=== PATIENT | female | born 1940 | race Caucasian/White ===

== ENCOUNTER 2017-07-29 11:44 | Emergency (ER) | payer OTHER ==
[~2017-07-29] VITALS: Ht 157.5 cm; Wt 93.9 kg
[~2017-07-29 11:44] MED LIST: ASPIRIN325 PO; ASPIRIN81 M2; AUGMENTIN 875875 MG PO; AVAPRO PO; AVAPRO300 MG PO; AZITHROMYCIN 2250 MG PO; CALCIUM 500 +1 EAC5; CALCIUM 600 +1 EAC1 PO; CARVEDILOL3.125 MG PO; CYMBALTA30 MG PO; DULERA 100 MCG/13 GM INH; DULERA 200 MCG/13 GM; EYE GTTS; FISH OIL 1,2001 EAC3 PO; LATANOPROST2.5 ML OPHTHALMIC; LEVAQUIN 500 M500 M2; LEVOTHROID; LEVOTHROID112 MCG; LIPITOR PO; LIPITOR40 MG PO; MULTIVITAMINS PO; PREDNISONE 10 M10 MG; PROAIR HFA8.5 GM; SINGULAIR 10 MG10 M1 PO; SINGULAIR PO; SYNTHROID150 MCG PO; TRAMADOL 50 MG50 MG PO; VITAMINC500 PO; ZOFRAN 4 MG ORAL4 MG PO
[2017-07-29] MEDS ORDERED: LATANOPROST 0.2.5 ML OPHTHALMIC (11:56)
[2017-07-29 12:07] LABS: HEMATOCRIT 36.7 % (37.0-47.0); HEMOGLOBIN 12.2 gm/dL (12.0-15.0); MCH 29.8 pg (26.0-34.0); MCHC 33.3 g/dL (28.0-37.0); MCV 89.4 fL (80.0-100.0); MPV 7.8 fl. (7.2-11.1); NUCLEATED RBCS 0 /100WBC; PLATELET COUNT* 251 thou/uL (150-400); RBC 4.11 mil/uL (4.20-5.00); RDW-CV 13.7 % (10.5-14.5); WBC 6.8 thou/uL (4.0-11.0)
[2017-07-29 12:19] LABS: APTT 22.7 Seconds (25.0-31.3); PROTIME 9.8 Seconds (9.20-11.50)
[2017-07-29 12:30] LABS: ANION GAP 8 mmol/L (7-16); BUN 15 mg/dL (7-18); CHLORIDE 105 mmol/L (98-107); CO2 27 mmol/L (21-32); CREATININE 0.9 mg/dL (0.6-1.3); GLUCOSE 133 mg/dL (70-99); POTASSIUM 3.8 mmol/L (3.5-5.1); SODIUM 140 mmol/L (136-145)
[2017-07-29 12:50] LABS: ABSOLUTE EOSINOPHILS 0.6 thou/uL (0.0-0.7); ABSOLUTE LYMPHOCYTES 1.2 thou/uL (0.8-5.3); ABSOLUTE NEUTROPHILS 3.9 thou/uL (1.6-8.1); ATYPICAL LYMPHS 5 %; PLATELET ESTIMATE ADEQUATE
[2017-07-29 12:52] LABS: ALKALINE PHOSPHATASE 90 U/L (46-116); CK-MB MASS < 0.5 ng/mL (<0.5-3.6); LIPASE 271 U/L (73-393); MAGNESIUM 1.8 mg/dL (1.8-2.4); NT-PRO BRAIN NAT PEPTIDE 97 pg/mL (<300); SGOT 85 U/L (15-37); SGPT 145 U/L (30-65); TOTAL BILIRUBIN 0.5 mg/dL (<0.1-1.0); TOTAL PROTEIN 6.4 g/dL (6.4-8.2); TROPONIN-I LEVEL <0.06 ng/mL (<0.06)
[2017-07-29 14:16] LABS: URINE BILIRUBIN NEGATIVE (Negative); URINE BLOOD 3+ (Negative); URINE CLARITY CLEAR; URINE COLOR YELLOW; URINE GLUCOSE-RANDOM NEGATIVE (Negative); URINE KETONES NEGATIVE (Negative); URINE NITRITE-REFLEX NEGATIVE (Negative); URINE PROTEIN TRACE (Negative); URINE SPECIFIC GRAVITY 1.015 (1.005-1.030); URINE UROBILINOGEN 0.2 E.U./dl (0.2-1.0)
[2017-07-29 14:18] LABS: URINE LEUKOCYTES-REFLEX 2+ (Negative)
[2017-07-29 14:29] LABS: BACTERIA-REFLEX >30 Many /HPF (None Seen); CASTS None Seen /LPF (None Seen); SQUAMOUS 0-3 Few /LPF (0-3); URINE WBC-REFLEX >25 Many /HPF (0-5)
[2017-07-29 14:30] LABS: CRYSTALS None Seen /LPF (None Seen)
[2017-07-29] MEDS ORDERED: CIPROFLOXACIN500 M1 PO (14:34)
[2017-07-29 14:40] VITALS: BP 131/65
--- NOTE | 2017-07-30 11:48 | EKG ---
[place] [address] ELECTROCARDIOGRAM REPORT Name: PATRICIA KAUFMAN Room: [facility]#: [id number] Admission: 07/29/17 Attend Phys: Discharge: 07/29/17 Date of : 38 Report #: [id number] THIS REPORT FOR: //name// [facility] ED Test Date: 2017-07-29 Test Time: 11:51:41 Pat Name: PATRICIA KAUFMAN Department: Room: Gender: F Wildlife Refuge Specialist: Karissa ALMAZAN : 1940 Requested By: Gabriel Flores Order Number: [id number] MD: Chilo Wyman Measurements Intervals [place] Rate: 69 P: 59 [place]: 185 QRS: -30 QRSD: 103 T: 85 QT: 393 QTc: 421 Interpretive Statements Sinus rhythm Abnormal R-wave progression, late transition LVH with secondary repolarization abnormality Compared to ECG 03/13/2012 08:37:12 Early repolarization now present Sinus bradycardia no longer present Electronically Signed On 07-30-2017 11:48:20 PARKING MANAGER by Chilo Wyman [email or web address] <ELECTRONICALLY SIGNED> By: Chilo Wyman MD, [facility] 07/30/17 1148 1151 1151 Chilo Wyman MD, [facility] /EPI
== END 2017-07-29 14:41 | disposition home or self-care (01) ==
LOC: M.ERS 11:44
PROVIDERS: Family Medicine
DX: R07.89 Other chest pain (principal); N39.0 Urinary tract infection, site not specified; R31.9 Hematuria, unspecified; J45.909 Unspecified asthma, uncomplicated; I10 Essential (primary) hypertension; E78.00 Pure hypercholesterolemia, unspecified

== ENCOUNTER 2017-08-22 02:07 | Emergency (ER) | payer OTHER ==
[~2017-08-22] VITALS: Ht 157.5 cm; Wt 93.9 kg
[~2017-08-22 02:07] MED LIST changes: +CIPROFLOXACIN500 M1 PO; +LATANOPROST 0.2.5 ML OPHTHALMIC
[2017-08-22] MEDS ORDERED: PREDNISONE 10 M10 MG (02:16)
[2017-08-22 02:30] LABS: ABSOLUTE BASOPHILS 0.1 thou/uL (0.0-0.2); ABSOLUTE LYMPHOCYTES 1.2 thou/uL (0.8-5.3); ABSOLUTE MONOCYTES 0.5 thou/uL (0.0-1.2); ABSOLUTE NEUTROPHILS 7.8 thou/uL (1.6-8.1); BASOPHILS 0.7 %; EOSINOPHILS 0.5 %; HEMATOCRIT 34.8 % (37.0-47.0); HEMOGLOBIN 11.5 gm/dL (12.0-15.0); LYMPHOCYTES 12.9 %; MCH 29.8 pg (26.0-34.0); MCV 90.3 fL (80.0-100.0); MONOCYTES 4.8 %; MPV 7.8 fl. (7.2-11.1); NUCLEATED RBCS 0 /100WBC; PLATELET COUNT* 279 thou/uL (150-400); POLYS 81.1 %; RBC 3.86 mil/uL (4.20-5.00); WBC 9.6 thou/uL (4.0-11.0)
[2017-08-22 02:45] LABS: APTT 22.9 Seconds (25.0-31.3); PROTIME 10.2 Seconds (9.20-11.50)
[2017-08-22 02:48] LABS: ANION GAP 9 mmol/L (7-16); BUN 21 mg/dL (7-18); CALCIUM 9.1 mg/dL (8.5-10.1); CHLORIDE 106 mmol/L (98-107); CO2 26 mmol/L (21-32); CREATININE 0.9 mg/dL (0.6-1.3); GLUCOSE 149 mg/dL (70-99); POTASSIUM 3.8 mmol/L (3.5-5.1); SODIUM 141 mmol/L (136-145)
[2017-08-22 03:06] LABS: ALBUMIN 3.2 g/dL (3.4-5.0); ALKALINE PHOSPHATASE 109 U/L (46-116); CK-MB MASS 0.7 ng/mL (<0.5-3.6); LIPASE 184 U/L (73-393); MAGNESIUM 1.9 mg/dL (1.8-2.4); NT-PRO BRAIN NAT PEPTIDE 645 pg/mL (<300); SGOT 27 U/L (15-37); SGPT 38 U/L (30-65); TOTAL BILIRUBIN 0.3 mg/dL (<0.1-1.0); TOTAL PROTEIN 6.7 g/dL (6.4-8.2); TROPONIN-I LEVEL <0.06 ng/mL (<0.06)
[2017-08-22 03:24] VITALS: BP 156/51
--- NOTE | 2017-08-22 15:21 | EKG ---
[place] [address] ELECTROCARDIOGRAM REPORT Name: PATRICIA KAUFMAN Room: [facility]#: [id number] Admission: 08/22/17 Attend Phys: Discharge: 08/22/17 Date of : 38 Report #: [id number] THIS REPORT FOR: //name// [facility] ED Test Date: 2017-08-22 Test Time: 02:13:55 Pat Name: PATRICIA KAUFMAN Department: Room: Gender: F Rf Test Technician: KULDEEP : 1940 Requested By: Gabriel Flores Order Number: [id number] MD: Chilo Wyman Measurements Intervals [place] Rate: 72 P: 69 VA: 196 QRS: -20 QRSD: 102 T: 15 QT: 408 QTc: 447 Interpretive Statements Sinus rhythm Borderline left axis deviation Minimal ST depression, anterolateral leads Compared to ECG 07/29/2017 11:51:41 ST (T wave) deviation now present Left ventricular hypertrophy no longer present Early repolarization no longer present Electronically Signed On 08-22-2017 15:21:11 ORACLE APPLICATIONS ANALYST by Chilo Wyman [email or web address] <ELECTRONICALLY SIGNED> By: Chilo Wyman MD, [facility] 08/22/17 1521 Chilo Wyman MD, [facility] /EPI
== END 2017-08-22 03:24 | disposition home or self-care (01) ==
LOC: M.ERS 02:07
PROVIDERS: Family Medicine
DX: R07.89 Other chest pain (principal)

== ENCOUNTER → 2017-09-27 | Outpatient (CLI) | payer OTHER ==
--- NOTE | 2017-09-27 16:17 | 2DMMODE ---
[place] [address] 2 D/M-MODE ECHOCARDIOGRAM Name: SHAEPATRICIA Bridgette Room: [facility]#: [id number] Admission: 09/27/17 Attend Phys: Atilio De León, Discharge: Date of : 38 Date of Service: 09/27/17 1616 Report #: [id number] THIS REPORT FOR: //name// APPROVED REPORT Study performed: 09/27/2017 10:20:54 EXAM: Comprehensive 2D, Doppler, and color-flow Echocardiogram Patient Location: Out-Patient Status: routine BSA: 2.01 HR: 68 bpm BP: 152/78 mmHg Other Information Study Quality: Good Indications Aortic Valve Disease 2D Dimensions LVEF(%): 75.37 (>50%) IVSd: 12.85 (7-11mm) LVOT Diam: 20.14 (18-24mm) LVDd: 42.67 mm PWd: 9.97 (7-11mm) Ascending Ao: 32.08 (22-36mm) LVDs: 23.97 (25-40mm) Aortic Root: 28.26 mm Johansen's LVEF: 75.37 % Volumes Left Atrial Volume (Systole) LA ESV Index: 18.00 mL/m2 Aortic Valve AoV Peak Daniel.: 2.21 m/s AO Peak Gr.: 19.58 mmHg LVOT Max P.36 mmHg AO Mean Gr.: 12.09 mmHg LVOT Mean P.01 mmHg LVOT Max V: 1.04 m/s AO V2 VTI: 59.80 cm LVOT Mean V: 0.65 m/s BRANDON (VTI): 1.38 cm2 LVOT V1 VTI: 25.98 cm AI [place]: 2.34 m/s2 AI PHT: 399.80 [place] [address] 2 D/M-MODE ECHOCARDIOGRAM Name: PATRICIA KAUFMAN Room: [facility]#: [id number] Admission: 09/27/17 Attend Phys: Atilio De León, Discharge: Date of : 38 Date of Service: 09/27/17 1616 Report #: [id number] E/A Ratio: 0.83 MV Decel. Time: 227.91 ms MV E Max Daniel.: 1.04 m/s MV PHT: 66.09 ms MVA (PHT): 3.33 cm2 TDI E/Lateral E': 13.00 E/Medial E': 11.56 Medial E' Daniel.: 0.09 m/s Lateral E' Daniel.: 0.08 m/s Pulmonary Valve PV Peak Daniel.: 0.97 m/s PV Peak Gr.: 3.73 mmHg Tricuspid Valve TR Peak Gr.: 18.23 mmHg RVSP: 23.23 mmHg Left Ventricle The left ventricle is normal size. There is normal LV segmental wall motion. There is normal left ventricular wall thickness. Left ventricular systolic function is normal. The left ventricular ejection fraction is within the normal range. LVEF is 55-60%. Grade I - abnormal relaxation pattern. Right Ventricle The right ventricle is normal size. The right ventricular systolic function is normal. Atria The left atrium size is normal. The right atrium size is normal. Aortic Valve Aortic valve is calcified. Mild aortic regurgitation. Mild aortic stenosis. Mitral Valve There is mild mitral annular calcification. Mild mitral regurgitation. No evidence of mitral valve stenosis. Tricuspid Valve The tricuspid valve is normal in structure. Mild tricuspid regurgitation. The RVSP is _23 mmHg. Pulmonic Valve The pulmonary valve is normal in structure. [place] [address] 2 D/M-MODE ECHOCARDIOGRAM Name: PATRICIA KAUFMAN Room: [facility]#: [id number] Admission: 09/27/17 Attend Phys: Atilio De León, Discharge: Date of : 38 Date of Service: 09/27/17 1616 Report #: [id number] valvular regurgitation. Great Vessels The aortic root is normal in size. IVC is normal in size and collapses with >50% inspiration Pericardium There is no pericardial effusion. <Conclusion> LVEF is 55-60%. Mild aortic stenosis. Mild aortic regurgitation. Mild mitral regurgitation. <ELECTRONICALLY SIGNED> By: Velasquez Graves MD, FACC 09/27/17 [phone] Velasquez Graves MD, FACC /INF
== END ==
LOC: M.CRD 10:00
DX: I08.3 Combined rheumatic disorders of mitral, aortic and tricuspid valves (principal)

== ENCOUNTER → 2018-10-02 | Outpatient (CLI) | payer OTHER ==
--- NOTE | 2018-10-02 10:57 | 2DMMODE ---
[place] [address] 2 D/M-MODE ECHOCARDIOGRAM Name: PATRICIA KAUFMAN Room: [facility]#: [id number] Admission: 10/02/18 Attend Phys: Atilio De León, Discharge: Date of : 38 Date of Service: 10/02/18 1057 Report #: [id number] THIS REPORT FOR: //name// APPROVED REPORT Study performed: 10/02/2018 09:55:44 EXAM: Comprehensive 2D, Doppler, and color-flow Echocardiogram Patient Location: Out-Patient BSA: 1.99 HR: 55 bpm BP: 152/78 mmHg Other Information Study Quality: Good Indications Aortic Valve Disease 2D Dimensions IVSd: 10.59 (7-11mm) LVOT Diam: 20.32 (18-24mm) LVDd: 49.04 mm PWd: 10.94 (7-11mm) Ascending Ao: 33.16 (22-36mm) LVDs: 23.13 (25-40mm) Aortic Root: 27.83 mm Volumes Left Atrial Volume (Systole) LA ESV Index: 14.80 mL/m2 Aortic Valve AoV Peak Daniel.: 2.12 m/s AO Peak Gr.: 17.99 mmHg LVOT Max P.06 mmHg AO Mean Gr.: 10.90 mmHg LVOT Mean P.15 mmHg LVOT Max V: 1.12 m/s AO V2 VTI: 58.35 cm LVOT Mean V: 0.66 m/s BRANDON (VTI): 1.66 cm2 LVOT V1 VTI: 29.90 cm AI Iron: 2.30 m/s2 AI PHT: 404.37 ms Mitral Valve MV Peak Gr.: 6.71 mmHg MV Mean Gr.: 2.37 mmHg E/A Ratio: 0.90 MV Decel. Time: 213.41 [place] [address] 2 D/M-MODE ECHOCARDIOGRAM Name: PATRICIA KAUFMAN Room: [facility]#: [id number] Admission: 10/02/18 Attend Phys: Atilio De León, Discharge: Date of : 38 Date of Service: 10/02/18 1057 Report #: [id number] MV E Max Daniel.: 0.95 m/s MV PHT: 61.89 ms MVA (PHT): 3.55 cm2 TDI E/Lateral E': 10.56 E/Medial E': 13.57 Medial E' Daniel.: 0.07 m/s Lateral E' Daniel.: 0.09 m/s Pulmonary Valve PV Peak Daniel.: 0.92 m/s PV Peak Gr.: 3.41 mmHg Tricuspid Valve RAP Estimate: 5.00 mmHg TR Peak Gr.: 18.91 mmHg RVSP: 23.91 mmHg TV Vmax: 23.91 m/s PA Pressure: 23.91 mmHg Left Ventricle The left ventricle is normal size. There is normal LV segmental wall motion. There is normal left ventricular wall thickness. Left ventricular systolic function is normal. LVEF is 55-60%. Grade I - abnormal relaxation pattern. Right Ventricle The right ventricle is normal size. The right ventricular systolic function is normal. Atria The left atrium size is normal. The right atrium size is normal. Aortic Valve Aortic valve is mildly calcified. Mild aortic regurgitation. Mild aortic stenosis. Mitral Valve Mild mitral annular calcification. Mild mitral regurgitation. No evidence of mitral valve stenosis. Tricuspid Valve The tricuspid valve is normal in structure. Mild tricuspid regurgitation. The RVSP is 30-35 mmHg. Pulmonic Valve The pulmonary valve is normal in structure. There is no pulmonic [place] [address] 2 D/M-MODE ECHOCARDIOGRAM Name: PATRICIA KAUFMAN Room: [facility]#: [id number] Admission: 10/02/18 Attend Phys: Atilio De León, Discharge: Date of : 38 Date of Service: 10/02/18 1057 Report #: [id number] Great Vessels The aortic root is normal in size. IVC is normal in size and collapses >50% with inspiration. Pericardium There is no pericardial effusion. <Conclusion> The left ventricle is normal size. There is normal left ventricular wall thickness. Left ventricular systolic function is normal. LVEF is 55-60%. Grade I - abnormal relaxation pattern. Aortic valve is mildly calcified. Mild aortic regurgitation. Mild aortic stenosis. Mild mitral annular calcification. Mild mitral regurgitation. Mild tricuspid regurgitation. The RVSP is 30-35 mmHg. IVC is normal in size and collapses >50% with inspiration. <ELECTRONICALLY SIGNED> By: Atilio De León MD, FACC 10/02/18 1057 1057 1057 Atilio De León MD, FACC /INF
== END ==
LOC: M.CRD 09:51
DX: I08.3 Combined rheumatic disorders of mitral, aortic and tricuspid valves (principal); Z88.5 Allergy status to narcotic agent; Z88.8 Allergy status to other drugs, medicaments and biological substances

== ENCOUNTER → 2018-11-12 | Outpatient (CLI) | payer OTHER | LOC: M.RAD 14:36 | DX: M47.812 Spondylosis without myelopathy or radiculopathy, cervical region (principal); M47.813 Spondylosis without myelopathy or radiculopathy, cervicothoracic region; R68.84 Jaw pain; G89.29 Other chronic pain; Z88.5 Allergy status to narcotic agent; Z88.8 Allergy status to other drugs, medicaments and biological substances ==

== ENCOUNTER → 2019-11-04 | Outpatient (CLI) | payer OTHER ==
--- NOTE | 2019-11-04 09:47 | 2DMMODE ---
[place] [address] 2 D/M-MODE ECHOCARDIOGRAM Name: PATRICIA KAUFMAN Room: [facility]#: [id number] Admission: 11/04/19 Attend Phys: Atilio De León, Discharge: Date of : 38 Date of Service: 11/04/19 0945 Report #: [id number] THIS REPORT FOR: cc: Ryley Wilcox MD, Dean L. MD Holkins,Tay Harper MD [facility] ~ APPROVED REPORT Study performed: 11/04/2019 07:51:11 EXAM: Comprehensive 2D, Doppler, and color-flow Echocardiogram Patient Location: Out-Patient BSA: 2.02 HR: 64 bpm BP: 152/78 mmHg Other Information Study Quality: Good Indications Aortic Valve Disease 2D Dimensions IVSd: 11.01 (7-11mm) LVOT Diam: 20.80 (18-24mm) LVDd: 46.98 mm PWd: 11.21 (7-11mm) Ascending Ao: 33.14 (22-36mm) LVDs: 25.63 (25-40mm) Aortic Root: 24.79 mm Volumes Left Atrial Volume (Systole) LA ESV Index: 14.10 mL/m2 Aortic Valve AoV Peak Daniel.: 2.51 m/s AO Peak Gr.: 25.23 mmHg LVOT Max P.25 mmHg AO Mean Gr.: 14.93 mmHg LVOT Mean P.16 mmHg LVOT Max V: 1.15 m/s AO V2 VTI: 70.29 cm LVOT Mean V: 0.66 m/s BRANDON (VTI): 1.46 cm2 LVOT V1 VTI: 30.15 cm AI [place]: 1.90 m/s2 AI PHT: 527.22 [place] [address] 2 D/M-MODE ECHOCARDIOGRAM Name: SHAEPATRICIARADHIKA STONE Room: [facility]#: [id number] Admission: 11/04/19 Attend Phys: Atilio De León, Discharge: Date of : 38 Date of Service: 11/04/19 0945 Report #: [id number] Mitral Valve MV Peak Gr.: 8.04 mmHg MV Mean Gr.: 3.69 mmHg E/A Ratio: 0.75 MV Decel. Time: 352.23 ms MV E Max Daniel.: 0.87 m/s MV PHT: 102.15 ms MVA (PHT): 2.15 cm2 TDI E/Lateral E': 8.70 E/Medial E': 12.43 Medial E' Daniel.: 0.07 m/s Lateral E' Daniel.: 0.10 m/s Pulmonary Valve PV Peak Daniel.: 0.90 m/s PV Peak Gr.: 3.21 mmHg Tricuspid Valve RAP Estimate: 5.00 mmHg TR Peak Gr.: 25.36 mmHg RVSP: 30.36 mmHg PA Pressure: 30.36 mmHg Left Ventricle The left ventricle is normal size. There is normal LV segmental wall motion. There is normal left ventricular wall thickness. Left ventricular systolic function is normal. The left ventricular ejection fraction is within the normal range. LVEF is 55-60%. Grade I - abnormal relaxation pattern. Right Ventricle The right ventricle is normal size. The right ventricular systolic function is normal. Atria The left atrium size is normal. The right atrium size is normal. Aortic Valve Aortic valve is mildly calcified. Mild aortic regurgitation. Mild aortic stenosis. Mitral Valve Moderate mitral annular calcification. Mild mitral regurgitation. No evidence of mitral valve stenosis. Tricuspid Valve The tricuspid valve is normal in structure. [place] [address] 2 D/M-MODE ECHOCARDIOGRAM Name: PATRICIA KAUFMAN Room: [facility]#: [id number] Admission: 11/04/19 Attend Phys: Atilio De León, Discharge: Date of : 38 Date of Service: 11/04/19 0945 Report #: [id number] regurgitation. Pulmonic Valve The pulmonary valve is normal in structure. There is no pulmonic valvular regurgitation. Great Vessels The aortic root is normal in size. IVC is normal in size and collapses >50% with inspiration. Pericardium There is no pericardial effusion. <Conclusion> The left ventricle is normal size. There is normal left ventricular wall thickness. Left ventricular systolic function is normal. The left ventricular ejection fraction is within the normal range. LVEF is 55-60%. Grade I - abnormal relaxation pattern. The right ventricle is normal size. The left atrium size is normal. Aortic valve is mildly calcified. Mild aortic regurgitation. Mild aortic stenosis. Moderate mitral annular calcification. Mild mitral regurgitation. No evidence of mitral valve stenosis. The tricuspid valve is normal in structure. Mild tricuspid regurgitation. IVC is normal in size and collapses >50% with inspiration. There is no pericardial effusion. There is normal LV segmental wall motion. <ELECTRONICALLY SIGNED> By: Tay Wise MD, FACC 11/04/19 0945 0945 Tay Wise MD, FACC /INF
== END ==
LOC: M.CRD 07:50
DX: I08.3 Combined rheumatic disorders of mitral, aortic and tricuspid valves (principal)

== ENCOUNTER → 2020-09-28 | Outpatient (CLI) | payer OTHER | LOC: M.RAD 14:04 | PROVIDERS: ATTEND Internal Medicine | DX: M19.011 Primary osteoarthritis, right shoulder (principal); G89.29 Other chronic pain; M50.10 Cervical disc disorder with radiculopathy, unspecified cervical region; M48.02 Spinal stenosis, cervical region; M25.78 Osteophyte, vertebrae; R07.9 Chest pain, unspecified ==

== ENCOUNTER → 2020-11-09 | Outpatient (CLI) | payer OTHER ==
--- NOTE | 2020-11-09 14:35 | 2DMMODE ---
[place] [address] 2 D/M-MODE ECHOCARDIOGRAM Name: PATRICIA KAUFMNA Room: [facility]#: [id number] Admission: 11/09/20 Attend Phys: Atilio De León, Discharge: Date of : 38 Date of Service: 11/09/20 1435 Report #: [id number] THIS REPORT FOR: cc: Ryley Wilcox MD, Dean L. MD Blick, David R. MD [facility] ~ APPROVED REPORT Study performed: 11/09/2020 10:30:20 EXAM: Comprehensive 2D, Doppler, and color-flow Echocardiogram Patient Location: Out-Patient BSA: 2.04 HR: 60 bpm Other Information Study Quality: Good Indications Aortic Valve Disease 2D Dimensions IVSd: 11.10 (7-11mm) LVOT Diam: 20.05 (18-24mm) LVDd: 43.65 mm PWd: 10.82 (7-11mm) Ascending Ao: 31.94 (22-36mm) LVDs: 27.24 (25-40mm) Aortic Root: 31.45 mm Volumes Left Atrial Volume (Systole) LA ESV Index: 15.60 mL/m2 Aortic Valve AoV Peak Daniel.: 2.46 m/s AO Peak Gr.: 24.20 mmHg LVOT Max P.34 mmHg AO Mean Gr.: 14.71 mmHg LVOT Mean P.89 mmHg LVOT Max V: 1.04 m/s AO V2 VTI: 66.92 cm LVOT Mean V: 0.62 m/s BRANDON (VTI): 1.37 cm2 LVOT V1 VTI: 29.02 cm Mitral Valve MV Peak Gr.: 7.50 [place] [address] 2 D/M-MODE ECHOCARDIOGRAM Name: PATRICIA KAUFMAN Room: [facility]#: [id number] Admission: 11/09/20 Attend Phys: Atilio De León, Discharge: Date of : 38 Date of Service: 11/09/20 1435 Report #: [id number] MV Mean Gr.: 3.75 mmHg E/A Ratio: 0.80 MV Decel. Time: 281.78 ms MV E Max Daniel.: 0.92 m/s MV PHT: 81.72 ms MVA (PHT): 2.69 cm2 TDI E/Lateral E': 11.50 E/Medial E': 7.08 Medial E' Daniel.: 0.13 m/s Lateral E' Daniel.: 0.08 m/s Pulmonary Valve PV Peak Daniel.: 0.90 m/s PV Peak Gr.: 3.27 mmHg Tricuspid Valve RAP Estimate: 5.00 mmHg TR Peak Gr.: 22.72 mmHg RVSP: 27.72 mmHg PA Pressure: 27.72 mmHg Left Ventricle The left ventricle is normal size. There is normal LV segmental wall motion. There is normal left ventricular wall thickness. Left ventricular systolic function is normal. The left ventricular ejection fraction is within the normal range. LVEF is 55-60%. Grade I - abnormal relaxation pattern. Right Ventricle The right ventricle is normal size. The right ventricular systolic function is normal. Atria The left atrium size is normal. The right atrium size is normal. Aortic Valve Aortic valve is calcified. Mild aortic regurgitation. Mild aortic stenosis. Mitral Valve Mild mitral annular calcification. The mitral valve is normal in structure. Mild mitral regurgitation. No evidence of mitral valve stenosis. Tricuspid Valve The tricuspid valve is normal in structure. Mild tricuspid regurgitation. estimated pa pressure 40 [place] [address] 2 D/M-MODE ECHOCARDIOGRAM Name: PATRICIA KAUFMAN Room: [facility]#: [id number] Admission: 11/09/20 Attend Phys: Atilio De León, Discharge: Date of : 38 Date of Service: 11/09/20 1435 Report #: [id number] Pulmonic Valve The pulmonary valve is normal in structure. There is no pulmonic valvular regurgitation. Great Vessels The aortic root is normal in size. IVC is normal in size and collapses >50% with inspiration. Pericardium There is no pericardial effusion. <Conclusion> LVEF is 55-60%. Mild aortic stenosis. Mild aortic regurgitation. Mild mitral regurgitation. Mild tricuspid regurgitation. estimated pa pressure 40 mm Hg <ELECTRONICALLY SIGNED> By: Velasquez Graves MD, [facility] 11/09/20 1435 1435 1435 Velasquez Graves MD, FACC /INF
== END ==
LOC: M.CRD 10:43
PROVIDERS: ATTEND Internal Medicine Cardiovascular Disease
DX: I08.3 Combined rheumatic disorders of mitral, aortic and tricuspid valves (principal)

== ENCOUNTER → 2021-03-15 | Outpatient (CLI) | payer OTHER | LOC: M.ULTRA 12:39 | PROVIDERS: ATTEND Internal Medicine | DX: N26.1 Atrophy of kidney (terminal) (principal); N39.0 Urinary tract infection, site not specified ==

== ENCOUNTER 2021-06-13 07:50 | Inpatient (IN) | payer OTHER ==
[~2021-06-13] VITALS: Ht 160 cm; Wt 93.4 kg
[~2021-06-13 07:50] MED LIST changes: -LEVOTHROID112 MCG; +LEVOTHYROXINE112 MC1 PO
[2021-06-13 09:15] VITALS: BP 120/43
[2021-06-13 09:36] LABS: ABSOLUTE LYMPHOCYTES 0.8 thou/uL (0.8-5.3); ABSOLUTE MONOCYTES 0.4 thou/uL (0.0-1.2); ABSOLUTE NEUTROPHILS 2.1 thou/uL (1.6-8.1); BASOPHILS 0.5 %; EOSINOPHILS 0.1 %; HEMATOCRIT 37.5 % (37.0-47.0); HEMOGLOBIN 12.4 gm/dL (12.0-15.0); LYMPHOCYTES 24.9 %; MCV 87.7 fL (80.0-100.0); MPV 8.1 fl. (7.2-11.1); NUCLEATED RBCS 0 /100WBC; PLATELET COUNT* 164 thou/uL (150-400); POLYS 62.5 %; RBC 4.28 mil/uL (4.20-5.00); RDW-CV 14.1 % (10.5-14.5); WBC 3.3 thou/uL (4.0-11.0)
[2021-06-13 09:48] LABS: CALCIUM 8.5 mg/dL (8.5-10.1); CREATININE 1.1 mg/dL (0.6-1.3); POTASSIUM 3.7 mmol/L (3.5-5.1)
[2021-06-13 10:07] LABS: TOTAL BILIRUBIN 0.6 mg/dL (<0.1-1.0); TOTAL PROTEIN 6.9 g/dL (6.4-8.2)
--- NOTE | 2021-06-13 10:43 | EKG ---
[place] [address] ELECTROCARDIOGRAM REPORT Name: PATRICIA KAUFMAN Room: [facility]#: [id number] Admission: 06/13/21 Attend Phys: Discharge: Date of : 38 Date of Service: 06/13/21 1000 Report #: [id number] THIS REPORT FOR: //name// [facility] ED Test Date: 2021-06-13 Test Time: 10:00:07 Pat Name: PATRICIA KAUFMAN Department: Room: Gender: F Supervisor Dry Cleaning: : 1940 Requested By: Patricio Peterson Order Number: [id number] MD: Cecil Vincent Measurements Intervals [place] Rate: 57 P: 18 VA: 184 QRS: -35 QRSD: 96 T: 20 QT: 425 QTc: 414 Interpretive Statements Sinus rhythm Left ventricular hypertrophy Compared to ECG 08/22/2017 02:13:55 Left ventricular hypertrophy now present ST (T wave) deviation no longer present Electronically Signed On 06-13-2021 10:42:55 SCREEN ROLLER by Cecil Vincent [email or web address] <ELECTRONICALLY SIGNED> By: Renita Vincent MD, [facility] 06/13/21 1042 1000 1000 F. Cecil Vincent MD, [facility] /EPI
[2021-06-13 15:20] VITALS: BP 122/61
[2021-06-13 19:20] VITALS: BP 116/60
[2021-06-13 23:20] VITALS: BP 119/53
[2021-06-13] MEDS ORDERED: ROSUVASTATIN CA20 MG PO (23:36)
[2021-06-13] MEDS ORDERED: TRAMADOL 50 MG50 MG PO (23:36)
[2021-06-13] MEDS ORDERED: AVAPRO300 MG PO (23:37)
[2021-06-14 03:20] VITALS: BP 122/54
[2021-06-14 07:07] VITALS: BP 130/53
[2021-06-14 10:34] VITALS: BP 111/47
[2021-06-14 14:01] VITALS: BP 98/39
--- NOTE | 2021-06-14 14:55 | 2DMMODE ---
[place] [address] 2 D/M-MODE ECHOCARDIOGRAM Name: PATRICIA KAUFMAN Room: 170-9 ADM IN [place]#: [id number] Admission: 06/13/21 Attend Phys: Ace Prather Discharge: Date of : 38 Date of Service: 06/14/21 1454 Report #: [id number] THIS REPORT FOR: cc: Judy Chahal MD, Lin W. MD Blick, David R. MD [facility] ~ APPROVED REPORT Study performed: 06/14/2021 11:14:46 EXAM: Comprehensive 2D, Doppler, and color-flow Echocardiogram Patient Location: In-Patient Room #: 112 Status: routine BSA: 1.95 HR: 68 bpm BP: 176/77 mmHg Rhythm: NSR Other Information Study Quality: Good Indications Congestive Heart Failure 2D Dimensions IVSd: 9.25 (7-11mm) LVOT Diam: 19.55 (18-24mm) LVDd: 52.21 mm PWd: 10.41 (7-11mm) Ascending Ao: 35.29 (22-36mm) LVDs: 29.32 (25-40mm) Aortic Root: 27.10 mm Volumes Left Atrial Volume (Systole) LA ESV Index: 55.30 mL/m2 Aortic Valve AoV Peak Daniel.: 2.60 m/s AO Peak Gr.: 27.05 mmHg LVOT Max P.25 mmHg AO Mean Gr.: 16.24 mmHg LVOT Mean P.70 mmHg LVOT Max V: 1.25 m/s AO V2 VTI: 66.69 cm LVOT Mean V: 0.74 m/s BRANDON (VTI): 1.36 cm2 LVOT V1 VTI: 30.24 cm AI Owen: 1.39 m/s2 [place] [address] 2 D/M-MODE ECHOCARDIOGRAM Name: SHAEPATRICIARADHIKA STONE Room: [place] [address] ADM [place] .R.#: [id number] Admission: 06/13/21 Attend Phys: Ace Prather Discharge: Date of : 38 Date of Service: 06/14/21 1454 Report #: [id number] AI PHT: 598.66 ms Mitral Valve MV Mean Gr.: 2.82 mmHg E/A Ratio: 0.79 MV Decel. Time: 305.16 ms MV E Max Daniel.: 1.03 m/s MV PHT: 88.50 ms MVA (PHT): 2.49 cm2 TDI E/Lateral E': 10.30 E/Medial E': 12.88 Medial E' Daniel.: 0.08 m/s Lateral E' Daniel.: 0.10 m/s Pulmonary Valve PV Peak Daniel.: 1.00 m/s PV Peak Gr.: 3.99 mmHg Tricuspid Valve RAP Estimate: 5.00 mmHg TR Peak Gr.: 22.26 mmHg RVSP: 27.00 mmHg PA Pressure: 27.00 mmHg Left Ventricle The left ventricle is normal size. There is normal LV segmental wall motion. There is normal left ventricular wall thickness. Left ventricular systolic function is normal. The left ventricular ejection fraction is within the normal range. LVEF is >70%. Grade I - abnormal relaxation pattern. Right Ventricle The right ventricle is normal size. The right ventricular systolic function is normal. Atria Left atrium is severely dilated. The right atrium size is normal. Aortic Valve Aortic valve is calcified. Mild aortic regurgitation. Moderate aortic stenosis. Mitral Valve Moderate mitral annular calcification. The mitral valve is normal in structure. Mild mitral regurgitation. [place] [address] 2 D/M-MODE ECHOCARDIOGRAM Name: PATRICIA KAUFMAN Room: [address] IN [facility]#: [id number] Admission: 06/13/21 Attend Phys: Ace Prather Discharge: Date of : 38 Date of Service: 06/14/21 1454 Report #: [id number] Tricuspid Valve The tricuspid valve is normal in structure. Mild tricuspid regurgitation. No pulmonary hypertension. Pulmonic Valve The pulmonary valve is normal in structure. Trace pulmonic regurgitation. Great Vessels The aortic root is normal in size. IVC is normal in size and collapses >50% with inspiration. Pericardium There is no pericardial effusion. <Conclusion> LVEF is >70%. Left atrium is severely dilated. Moderate aortic stenosis. Mild mitral regurgitation. <ELECTRONICALLY SIGNED> By: Velasquez Graves MD, FACC 06/14/21 1454 1454 1454 Velasquez Graves MD, FACC /INF
[2021-06-14 15:42] VITALS: BP 98/39
[2021-06-14 20:30] VITALS: BP 135/60
[2021-06-15] VITALS: BP 123/55
[2021-06-15 04:00] VITALS: BP 140/78
[2021-06-15 08:00] VITALS: BP 100/52
--- NOTE | 2021-06-15 11:49 | EKG ---
[place] [address] ELECTROCARDIOGRAM REPORT Name: PATRICIA KAUFMAN Room: [address] ADM IN M.R.#: [id number] Admission: 06/13/21 Attend Phys: Ace Prather Discharge: Date of : 38 Date of Service: 06/14/21 0238 Report #: [id number] THIS REPORT FOR: //name// [facility] ED Test Date: 2021-06-14 Test Time: 02:38:17 Pat Name: PATRICIA KAUFMAN Department: Room: [address] Gender: F [employer] Consultant: ALEYDA : 1940 Requested By: Patricio Peterson Order Number: [id number] MD: Velasquez Graves Measurements Intervals [place] Rate: 49 P: 100 RI: 237 QRS: -32 QRSD: 102 T: 47 QT: 470 QTc: 425 Interpretive Statements Sinus bradycardia Prolonged RI interval Left axis deviation Compared to ECG 06/13/2021 10:00:07 First degree AV block now present rate has slowed Left ventricular hypertrophy no longer present Electronically Signed On 06-15-2021 11:49:13 LICENSED REACTOR OPERATOR by Velasquez Graves [email or web address] <ELECTRONICALLY SIGNED> By: Velasquez Graves MD, FACC 06/15/21 1149 0238 0238 Velasquez Graves MD, FACC /EPI
[2021-06-15 11:56] LABS: HEMATOCRIT 36.8 % (37.0-47.0); HEMOGLOBIN 12.3 gm/dL (12.0-15.0); MCH 29.1 pg (26.0-34.0); MCHC 33.5 g/dL (28.0-37.0); MCV 86.9 fL (80.0-100.0); MPV 8.7 fl. (7.2-11.1); NUCLEATED RBCS 0 /100WBC; PLATELET COUNT* 235 thou/uL (150-400); RBC 4.23 mil/uL (4.20-5.00); RDW-CV 13.6 % (10.5-14.5); WBC 9.8 thou/uL (4.0-11.0)
[2021-06-15] MEDS ORDERED: PROAIR HFA8.5 GM INH (12:01)
[2021-06-15] MEDS ORDERED: TESSALON PERLE100 MG PO (12:01)
[2021-06-15 12:02] LABS: APTT 22.7 Seconds (25.0-31.3); PROTIME 10.6 Seconds (9.20-11.50)
[2021-06-15] MEDS ORDERED: PREDNISONE 10 M10 MG PO (12:02)
[2021-06-15] MEDS ORDERED: LEVOFLOXACIN500 MG PO (12:02)
[2021-06-15 12:04] LABS: ALBUMIN 2.9 g/dL (3.4-5.0); CALCIUM 9.1 mg/dL (8.5-10.1); CREATININE 1.1 mg/dL (0.6-1.3); MAGNESIUM 2.2 mg/dL (1.8-2.4); PHOSPHORUS* 2.7 mg/dL (2.5-4.9); POTASSIUM 3.6 mmol/L (3.5-5.1); TOTAL BILIRUBIN 0.3 mg/dL (<0.1-1.0); TOTAL PROTEIN 6.7 g/dL (6.4-8.2)
[2021-06-15 12:38] LABS: ABSOLUTE LYMPHOCYTES 0.7 thou/uL (0.8-5.3); ABSOLUTE MONOCYTES 0.5 thou/uL (0.0-1.2); ABSOLUTE NEUTROPHILS 8.6 thou/uL (1.6-8.1); PLATELET ESTIMATE ADEQUATE
[2021-06-15 13:39] VITALS: BP 100/52
[2021-06-15 14:56] VITALS: BP 100/52
== END 2021-06-15 15:19 | disposition home health service (06) | DRG 177 ==
LOC: M.ERS 07:50 → M.TBA-ER 11:01 → M.ORTHSURG 06-14 15:54
PROVIDERS: Emergency Medicine Emergency Medical Services; ADMIT Internal Medicine; ATTEND Internal Medicine
DX: U07.1 COVID-19 (principal); J96.01 Acute respiratory failure with hypoxia; I50.33 Acute on chronic diastolic (congestive) heart failure; E03.9 Hypothyroidism, unspecified; I11.0 Hypertensive heart disease with heart failure; E78.5 Hyperlipidemia, unspecified